=== PATIENT | female | born 1990 ===

== ENCOUNTER → 2024-12-21 08:03 | Outpatient (CLI) | payer OTHER ==
[2024-12-21 09:14] LABS: HEMATOCRIT 34.7 % (36.0-45.00); HEMOGLOBIN 11.9 g/dL (12.0-15.00); MEAN CELL VOLUME 83.9 fL (80.00-100.00); MEAN CORPUSCULAR HEMOGLOBIN 28.8 pg (27.00-32.0); MEAN CORPUSCULAR HGB CONC 34.3 g/dl (32.0-36.0); PLATELET COUNT 291 K/uL (150-450); RED BLOOD COUNT 4.14 M/uL (4.00-6.00); RED CELL DISTRIBUTION WIDTH 13.6 % (11.5-14.5)
[2024-12-21 09:20] LABS: INR 1.01; PARTIAL THROMBOPLASTIN TIME 29.9 SECONDS (22.0-34.0)
[2024-12-21 09:24] LABS: COL EPI 115 SECONDS (82-175)
[2024-12-21 10:03] LABS: % SATURACION 24.5 % (15-50); BILIRUBIN TOTAL 0.8 mg/dL (0.3-1.2); CREATININE SERUM 0.68 mg/dL (0.55-1.02); FERRITIN 16.1 NG/ML (8-252); GFR 97.9; GLOBULINA 4.3 G/DL (2.4-3.5); POTASSIUM 4.25 mEq/L (3.5-5.1); TOTAL PROTEIN 8.3 gm/dL (6.4-8.2); TSH 1.55 uIU/mL (0.358-3.74)
[2024-12-21 13:40] LABS: FOLIC ACID 16.74 ng/ml (4.78-20); VITAMIN D3 25 HYDROXY 25.87 ng/ml (30-120)
[2024-12-23 08:44] LABS: MANUAL PLATELET COUNT 348
[2024-12-23 08:45] LABS: PLATELET ESTIMATE NORMAL (NORMAL)
[2024-12-24 09:10] LABS: ANTI THYROID PEROXIDASE 16 IU/mL (0-34); TRANSFERIN 303 mg/dL (192-364)
[2024-12-24 15:06] LABS: hgb a 97.1 % (96.4-98.8); hgb a2 2.9 % (1.8-3.2); hgb f 0 % (0.0-2.0); hgb s 0 % (0.0)
[2024-12-25 23:06] LABS: g6pd quant 253 (127-427); rbc 4.23 x10E6/uL (3.77-5.28)
== END | disposition home or self-care (01) ==
LOC: LAB 08:03
PROVIDERS: ATTEND Internal Medicine Hematology & Oncology
DX: M32.9 Systemic lupus erythematosus, unspecified (principal); D50.8 Other iron deficiency anemias; M35.01 Sjogren syndrome with keratoconjunctivitis; R79.9 Abnormal finding of blood chemistry, unspecified; I10 Essential (primary) hypertension; R74.02 Elevation of levels of lactic acid dehydrogenase [LDH]; K76.89 Other specified diseases of liver; D55.0 Anemia due to glucose-6-phosphate dehydrogenase [G6PD] deficiency; E55.9 Vitamin D deficiency, unspecified; Z13.29 Encounter for screening for other suspected endocrine disorder; D51.1 Vitamin B12 deficiency anemia due to selective vitamin B12 malabsorption with proteinuria; E06.3 Autoimmune thyroiditis; E03.8 Other specified hypothyroidism; D68.8 Other specified coagulation defects

== ENCOUNTER 2024-12-21 08:36 | Outpatient (CLI) | payer OTHER | END 2024-12-21 08:38 | disposition home or self-care (01) | LOC: SONOGRAMA 08:36 | PROVIDERS: ATTEND Internal Medicine Hematology & Oncology | DX: E04.2 Nontoxic multinodular goiter (principal); D50.8 Other iron deficiency anemias; M32.9 Systemic lupus erythematosus, unspecified; M35.01 Sjogren syndrome with keratoconjunctivitis ==

== ENCOUNTER → 2025-04-29 07:27 | Outpatient (CLI) | payer OTHER ==
[2025-04-29 08:31] LABS: BASO % 1.4 % (0.1-1.2); EOS # 0.09 (0.04-0.54); EOS % 2.5 % (0.7-7.0); LYMPH # 1.72 (1.18-3.74); LYMPH % 47.3 % (19.3-53.1); MEAN PLATELET VOLUME 10.60 fl (9.4-12.4); MONO # 0.32 (0.24-0.82); MONO % 8.8 % (4.7-12.5); NEUT # 1.45 (1.56-6.13); NEUT % 39.7 % (34.0-71.1); RED CELL DISTRIBUTION WIDTH 12.7 % (11.6-14.4)
[2025-04-29 08:50] LABS: ALT/SGPT 13.0 U/L (12-78); AST/SGOT 12.0 U/L (15-37); BILIRUBIN TOTAL 0.53 mg/dL (0.3-1.2); BUN CREA RATIO 13.0 (7.0-25.0); CREATININE SERUM 0.77 mg/dL (0.55-1.02); GFR 84.82; GLOBULINA 4.9 G/DL (2.4-3.5); GLUCOSE FASTING 83.0 mg/dL (65-100); OSMOLALITY SERUM 278.0 MOSM/KG (275-295); T4 FREE 0.94 NG/ML (0.76-1.46); TSH 0.969 uIU/mL (0.358-3.74)
[2025-04-30 09:08] LABS: ALPHA FETO PROTEIN < 1.8 ng/mL (0.0-6.4); CA 125 28.0 U/mL (0.0-38.1); CA 15-3 9.9 U/mL (0.0-25.0); CA 19-9 < 2 U/mL (0-35)
== END | disposition home or self-care (01) ==
LOC: LAB 07:27
PROVIDERS: ATTEND Internal Medicine Hematology & Oncology
DX: D50.8 Other iron deficiency anemias (principal); R79.9 Abnormal finding of blood chemistry, unspecified; I10 Essential (primary) hypertension; R74.02 Elevation of levels of lactic acid dehydrogenase [LDH]; K76.89 Other specified diseases of liver; E03.8 Other specified hypothyroidism; D51.1 Vitamin B12 deficiency anemia due to selective vitamin B12 malabsorption with proteinuria; D51.0 Vitamin B12 deficiency anemia due to intrinsic factor deficiency; C50.919 Malignant neoplasm of unspecified site of unspecified female breast; R97.8 Other abnormal tumor markers; C25.9 Malignant neoplasm of pancreas, unspecified; C56.9 Malignant neoplasm of unspecified ovary; R97.1 Elevated cancer antigen 125 [CA 125]; R97.0 Elevated carcinoembryonic antigen [CEA]; R77.2 Abnormality of alphafetoprotein; M32.9 Systemic lupus erythematosus, unspecified; M35.01 Sjogren syndrome with keratoconjunctivitis